=== PATIENT | male | born 1960 | race Caucasian/White ===

== ENCOUNTER → 2017-05-23 | Outpatient (REF) | payer OTHER | LOC: M LAB REF 12:48 | DX: T28.0XXA Burn of mouth and pharynx, initial encounter (principal); X58.XXXA Exposure to other specified factors, initial encounter; Y92.89 Other specified places as the place of occurrence of the external cause; Y93.89 Activity, other specified; Y99.8 Other external cause status | CPT/HCPCS: 87070 ==

== ENCOUNTER → 2017-06-11 | Outpatient (REF) | payer OTHER ==
[2017-06-11 13:56] LABS: URIC ACID 4.2 MG/DL (3.5-7.2)
== END ==
LOC: M LAB REF 13:30
DX: M10.9 Gout, unspecified (principal)

== ENCOUNTER 2017-09-02 06:57 | Day surgery (SDC) | payer BC, OTHER ==
[2017-09-02] MEDS: NS 1,000 ML IV (07:30)
[2017-09-02] MEDS ORDERED: LIDOCAINE 2% INJ 100 MG/5 ML SDV (FOR ANES.) As Ordered (08:25)
[2017-09-02] MEDS ORDERED: PROPOFOL 200 MG/20 ML VIAL As Ordered (08:25)
== END 2017-09-02 09:16 | disposition home or self-care (01) ==
LOC: M OPP 06:57
DX: Z12.11 Encounter for screening for malignant neoplasm of colon (principal); K64.0 First degree hemorrhoids; D12.0 Benign neoplasm of cecum; D12.2 Benign neoplasm of ascending colon; K57.30 Diverticulosis of large intestine without perforation or abscess without bleeding; I10 Essential (primary) hypertension; R00.1 Bradycardia, unspecified; E73.9 Lactose intolerance, unspecified; J30.89 Other allergic rhinitis; F41.9 Anxiety disorder, unspecified; N40.0 Benign prostatic hyperplasia without lower urinary tract symptoms; Z79.899 Other long term (current) drug therapy; Z87.39 Personal history of other diseases of the musculoskeletal system and connective tissue
CPT/HCPCS: 45380

== ENCOUNTER → 2019-07-09 | Outpatient (REF) | payer OTHER ==
[~2019-07-09] MED LIST: AMLO5TAB6 PO; FLOM0.4C39 PO; FLUTISP; LISI40TA PO; MIRT15TA3 PO; ZOLP5TAB PO; ZYLO300T6 PO
== END ==
LOC: M LAB REF 12:24
PROVIDERS: ATTEND Family Medicine
DX: M10.9 Gout, unspecified (principal)

== ENCOUNTER → 2020-07-27 | Outpatient (REF) | payer OTHER ==
[~2020-07-27] MED LIST changes: +AMLO1TAB24 PO; -AMLO5TAB6 PO; -LISI40TA PO; +LISI40TA4 PO
== END ==
LOC: M LAB REF 12:32
PROVIDERS: ATTEND Family Medicine
DX: M10.9 Gout, unspecified (principal)

== ENCOUNTER → 2021-07-12 | Outpatient (CLI) | payer BC, OTHER ==
[~2021-07-12] MED LIST changes: +ALLO300T2 PO; +AMIT25TA17 PO; +REME15TA2 PO; +TAMS1CAP17 PO; +VALT500T PO
== END ==
LOC: M LABSMTC 09:59
PROVIDERS: ATTEND Anesthesiology
DX: Z01.818 Encounter for other preprocedural examination (principal); Z11.52 Encounter for screening for COVID-19

== ENCOUNTER 2021-07-17 09:51 | Day surgery (SDC) | payer BC, OTHER ==
[~2021-07-17] VITALS: Ht 167.6 cm; Wt 81.2 kg
[~2021-07-17 09:51] MED LIST changes: +NS 1,000 ML IV ONE
[2021-07-17] MEDS ORDERED: LIDOCAINE 2% 100MG/5ML SDV (FOR ANES.) As Ordered ONE (10:05)
[2021-07-17] MEDS ORDERED: propofoL 200 MG/20 ML VIAL As Ordered ONE (10:05)
[2021-07-17 11:14] VITALS: BP 111/58
== END 2021-07-17 11:15 | disposition home or self-care (01) ==
LOC: M OPP 09:51
PROVIDERS: ATTEND Internal Medicine Gastroenterology
DX: Z12.11 Encounter for screening for malignant neoplasm of colon (principal); Z86.010 Personal history of colon polyps; K57.30 Diverticulosis of large intestine without perforation or abscess without bleeding; K64.0 First degree hemorrhoids; Z79.899 Other long term (current) drug therapy

== ENCOUNTER → 2022-01-23 | Outpatient (REF) | payer BC, OTHER ==
[~2022-01-23] MED LIST changes: -NS 1,000 ML IV ONE
== END ==
LOC: M LAB REF 16:09
PROVIDERS: ATTEND Family Medicine
DX: M10.9 Gout, unspecified (principal)

== ENCOUNTER → 2023-10-10 | Outpatient (REF) | payer OTHER ==
[~2023-10-10] MED LIST changes: -AMIT25TA17 PO; +AMIT25TA19 PO; +FLON27.5; +MIRT-84 PO; -REME15TA2 PO; +VALT1TAB PO
[2023-10-11 12:12] LABS: TESTOSTERONE FREE (DIRECT) 5.7 pg/mL (6.6-18.1)
== END ==
LOC: M LAB REF 13:18
PROVIDERS: ATTEND Family Medicine
DX: N52.9 Male erectile dysfunction, unspecified (principal)

== ENCOUNTER 2023-10-17 12:39 | Day surgery (SDC) | payer BC ==
[~2023-10-17] VITALS: Ht 170.2 cm; Wt 76.7 kg
[2023-10-17] MEDS ORDERED: ONDANSETRON 4MG 2ML VIAL As Ordered ONE (16:49)
[2023-10-17] MEDS ORDERED: LIDOCAINE 2% 100MG/5ML SDV (FOR ANES.) As Ordered ONE (16:49)
[2023-10-17] MEDS ORDERED: MIDAZOLAM INJ 2MG/2ML VIAL As Ordered ONE (16:49)
[2023-10-17] MEDS ORDERED: fentaNYL 100 MCG/2 ML INJECTION As Ordered ONE (16:49)
[2023-10-17] MEDS ORDERED: ROCURONIUM BROMIDE 50MG/5ML VIAL As Ordered ONE (16:49)
[2023-10-17] MEDS ORDERED: propofoL 200 MG/20 ML VIAL As Ordered ONE (16:49)
[2023-10-17] MEDS ORDERED: dexmedeTOMIDine (4MCG/ML)200MCG/50ML BTL (PRECEDEX) As Ordered ONE (16:53)
[2023-10-17] MEDS ORDERED: ACETAMINOPHEN 1000MG 100ML IV BAG As Ordered ONE (16:53)
[2023-10-17] MEDS ORDERED: GLYCOPYRROLATE INJ 0.2 MG/ML 2 ML VIAL As Ordered ONE (17:10)
[2023-10-17] MEDS ORDERED: SUGAMMADEX SODIUM 500 MG/5 ML VIAL (BRIDION) As Ordered ONE (17:26)
[2023-10-17] MEDS ORDERED: PHENYLephrine 500MCG 5ML (100MCG/ML) SYRINGE As Ordered ONE (17:27)
[2023-10-17] MEDS: LIDOCAINE W/EPINEPHRINE 1% 20ML VIAL As Ordered ONE (17:30)
[2023-10-17] MEDS: EPINEPHrine 1MG/ML INJ 30ML MD-VIAL As Ordered ONE (17:31)
[2023-10-17] MEDS: METHYLENE BLUE 0.5% (5MG/ML) 10 ML AMP (PROVAYBLUE) As Ordered ONE (17:32)
[2023-10-17] MEDS ORDERED: HYDROmorphone HCL 2MG/ML 1ML VIAL As Ordered ONE (18:05)
[2023-10-17] MEDS ORDERED: HYDROMORPHONE HCL 0.5 MG/ 0.5 ML SYRINGE IV PRN (18:35)
[2023-10-17] MEDS ORDERED: LR 1,000 ML IV SCH (18:35)
[2023-10-17] MEDS ORDERED: fentaNYL 100 MCG/2 ML INJECTION IV PRN (18:35)
[2023-10-17] MEDS ORDERED: ONDANSETRON 4MG 2ML VIAL IV PRN (18:35)
[2023-10-17] MEDS: oxyCODONE 5MG TAB PO PRN (19:13)
[2023-10-17 20:30] VITALS: BP 158/74; TEMP 98.2; O2SAT 97
[2023-10-17] MEDS: AUGMENTIN 875 MG TAB PO ONE (20:32)
== END 2023-10-17 20:45 | disposition home or self-care (01) ==
LOC: M SDC 12:39
PROVIDERS: ATTEND Otolaryngology
DX: J34.2 Deviated nasal septum (principal); I10 Essential (primary) hypertension; R00.1 Bradycardia, unspecified; N40.0 Benign prostatic hyperplasia without lower urinary tract symptoms; M10.9 Gout, unspecified; Z79.899 Other long term (current) drug therapy
CPT/HCPCS: 30520; 88300; J0131; J0171; J1100; J1170; J2250; J2371; J2405; J3010; Q9968

== ENCOUNTER → 2024-02-26 | Outpatient (REF) | payer OTHER, BC ==
[2024-02-26 14:17] LABS: Trichomonas vaginalis (AMP) NOT DETECTED (NEGATIVE)
[2024-02-26 14:41] LABS: GC DNA AMPLIFICATION NEGATIVE (NEGATIVE)
== END ==
LOC: M LAB REF 12:36
PROVIDERS: ATTEND Family Medicine
DX: Z20.2 Contact with and (suspected) exposure to infections with a predominantly sexual mode of transmission (principal)